=== PATIENT | female | born 1980 ===

== ENCOUNTER 2023-12-23 16:58 | Emergency (ER) | payer MEDICAID, SELFPAY ==
--- NOTE | ~2023-12-23 | XR_ITS ---
EXAMINATION: Left ankle and foot x-ray CLINICAL INFORMATION: Trauma COMPARISON: None. TECHNIQUE: 3 views of the left ankle and 3 views of the left foot FINDINGS: Left foot: There is a nondisplaced fracture through the base of the fifth metatarsal bone. Joint spaces are normal. There is soft tissue swelling adjacent to the fracture. Left ankle: Bone alignment is normal. No fracture or dislocation. Normal ankle mortise. Normal soft tissues. XR/XR ankle LT min 3V IMPRESSION: Nondisplaced fracture through the base of the fifth metatarsal bone.
--- NOTE | ~2023-12-23 | XR_ITS ---
EXAMINATION: Left ankle and foot x-ray CLINICAL INFORMATION: Trauma COMPARISON: None. TECHNIQUE: 3 views of the left ankle and 3 views of the left foot FINDINGS: Left foot: There is a nondisplaced fracture through the base of the fifth metatarsal bone. Joint spaces are normal. There is soft tissue swelling adjacent to the fracture. Left ankle: Bone alignment is normal. No fracture or dislocation. Normal ankle mortise. Normal soft tissues. XR/XR foot LT min 3V IMPRESSION: Nondisplaced fracture through the base of the fifth metatarsal bone.
[2023-12-23 17:08] VITALS: BP 118/72; PULSE 100; O2SAT 98
--- NOTE | 2023-12-23 17:23 | ED.LOWEXIN ---
HPI - Extremity Injury (Lower) General Chief Complaint: Extremity Injury, Lower Stated Complaint: FALL, L ANKLE PAIN Time Seen by Provider: 12/23/23 19:09 Source: patient Mode of arrival: EMS Limitations: no limitations History of Present Illness HPI Narrative: Patient is a 43-year-old female who presents emergency department via EMS for evaluation of traumatic left ankle/proximal foot pain. Reports a twisting injury and subsequent fall without head strike or loss of consciousness. Endorses pain to the lateral ankle and proximal mid foot along the 5th metatarsal. Denies numbness or tingling. Denies prior injury to this foot/ankle. Related Data Allergies Allergy/AdvReac Type Severity Reaction Status Date / Time No Known Allergies Allergy Verified 12/23/23 17:30 Review of Systems Review of Systems: Yes all other systems are reviewed and are negative [facility] Past Medical History Attestation statement: The following information was validated with the patient. Source: old records reviewed Social History Social History Advance Directives: No Advance Directives Information Provided: No Do you have a plan to hurt others: No Plan Physical Exam Vital Signs: Vital Signs: Last Vital Signs Temp 98.7 F 12/23/23 19:35 Pulse 75 12/23/23 19:35 Resp 20 12/23/23 19:35 BP 113/73 12/23/23 19:35 Pulse Ox 95 12/23/23 19:35 O2 Del Method Room Air 12/23/23 19:35 BMI result Body Mass Index 30.1 Appearance: Alert.?Oriented to person, place and time. No acute distress.?Normal affect.? Neck: Normal inspection.? Neck supple.?? CVS: Heart sounds normal. Normal heart rate and rhythm.? Pulses normal.?? Respiratory: No respiratory distress.? Lung sounds clear to auscultation bilaterally?? Skin: Skin warm and dry.? Normal skin color.? Extremities: No lower extremity edema.? No calf ttp?tenderness upon palpation to left proximal midfoot over 3rd-5th metatarsal. 2+ DP/PT pulse bilaterally Neuro: Moves all extremities spontaneously. Sensation intact bilaterally. Ambulates with antalgic gait Course Course Course Narrative: This is a rapid medical exam performed by Teja Reza NP: Additional HPI, ROS, PE not included below will be deferred to primary provider. Patient is a 43-year-old [place] speaking female presenting to the ED with complaint of left ankle pain. Also complains of pain to bottom of foot. States was running at home prior to arrival when she twisted her ankle and fell. Denies head strike or LOC. Denies neck or back pain. Plan: xrays Medical Decision Making Medical Decision Making MDM Narrative: Patient is a 43-year-old female who presents emergency department for evaluation of traumatic left lower extremity pain as per HPI. No obvious deformity on examination in the extremity is neurovascularly intact distally. XR was obtained to evaluate for fracture/dislocation versus sprain. XR consistent with a fracture of the proximal 5th metatarsal nondisplaced. She was placed in an orthopedic boot discussed rest, ice, elevation, acetaminophen/ibuprofen and outpatient follow-up with orthopedics. All questions were answered. Stable for discharge Differential Diagnosis Differential Diagnoses: The differential diagnosis associated with the presentation includes (See narrative above) Independent Interpretation I performed an independent interpretation of an: Plain X-Ray (Proximal 5th metatarsal fracture) Radiology Impression Discussion of test interpretation with radiology: I have reviewed the radiologist's reading. Radiologist Impression: FINDINGS: Left foot: There is a nondisplaced fracture through the base of the fifth metatarsal bone. Joint spaces are normal. There is soft tissue swelling adjacent to the fracture. Left ankle: Bone alignment is normal. No fracture or dislocation. Normal ankle mortise. Normal soft tissues. XR/XR ankle LT min 3V IMPRESSION: Nondisplaced fracture through the base of the fifth metatarsal bone. Independent Historian Clinical information obtained from an independent historian. History obtained from or confirmed by: EMS Prescription Management I considered prescription management with: Pain Medication Discharge Plan Discharge Clinical Impression: Metatarsal fracture Patient Disposition: Home, Self-Care Instructions: Foot Fracture in Adults (ED), R.I.C.E. Treatment (ED) Additional Instructions: You can take ibuprofen 200 mg, 3 tablets (600mg) every 6-8 hours as needed for pain, in addition to Tylenol 500 mg, 2 tablets (1,000mg) every 4-6 hours as needed for pain, but not to exceed 3 doses daily (3,000mg).? Wear the boot provided at all times until you are evaluated by orthopedics. Call their office first thing tomorrow morning to arrange for a follow-up visit. You may return back to emergency department any new or worsening symptoms or concerns. Referrals: Ary Saunders PA-C [Physician Elementary School Director] - Physician,Stephon J [Primary Care Provider] - Stand Alone Forms: Work/School Release Print Language: [place]
[2023-12-23 17:26] VITALS: BP 129/83; PULSE 91; RESP 18; TEMP 36.9; O2SAT 98; BMI 30.1
[2023-12-23 19:35] VITALS: BP 113/73; PULSE 75; RESP 20; TEMP 37.1; O2SAT 95
[2023-12-23] MEDS: Ibuprofen 600 MG TABLET PO (20:28)
[2023-12-23 20:32] VITALS: BP 113/73; PULSE 75; RESP 20; TEMP 37.1; O2SAT 95
== END 2023-12-23 20:32 | disposition home or self-care (01) ==
PROVIDERS: Emergency Provider Internal Medicine
DX: S92.352A Displaced fracture of fifth metatarsal bone, left foot, initial encounter for closed fracture (principal); M25.572 Pain in left ankle and joints of left foot; M79.672 Pain in left foot; X50.1XXA Overexertion from prolonged static or awkward postures, initial encounter; Y93.9 Activity, unspecified; Y92.9 Unspecified place or not applicable; Y99.8 Other external cause status
CPT/HCPCS: 73610; 73630; 99283

== ENCOUNTER 2023-12-29 06:29 | Outpatient (REF) | payer MEDICAID, SELFPAY ==
--- NOTE | ~2023-12-29 | XR_ITS ---
EXAMINATION: XR FOOT, LEFT CLINICAL INFORMATION: Pain left foot COMPARISON: X-rays of the left ankle November 2023 TECHNIQUE: AP, lateral, and oblique views of the left foot. FINDINGS: The bones and soft tissues are normal. No fracture. Alignment is anatomic. Joint spaces are maintained. XR/XR foot LT min 3V IMPRESSION: Normal left foot. Previously described fracture of the base of the fifth metatarsals not visible..
== END 2023-12-29 06:30 | disposition home or self-care (01) ==
LOC: HO.HOSX 06:29
PROVIDERS: Visit Provider Physician Assistant
DX: S92.353A Displaced fracture of fifth metatarsal bone, unspecified foot, initial encounter for closed fracture (principal); S93.402A Sprain of unspecified ligament of left ankle, initial encounter
CPT/HCPCS: 73630; 99212

== ENCOUNTER 2023-12-29 14:33 | Outpatient (AMB) | payer MEDICAID, SELFPAY ==
--- NOTE | 2023-12-29 15:01 | MHC.OFFVIS ---
Vital Signs 12/29/23 15:15 Height 5 ft Weight 154 lb BMI 30.1 Intake Visit Reasons: FC-Metatarsal fracture, left ankle Intake Note: Clarissa a 43 year old female who presents today for an ER follow up s/p LT 5th metatarsal fracture, DOI 12/23/23. Patient reports she fell and twisted her ankle. She was seen in [facility] and was placed in a boot until further evaluated. Currently her pain is located at the lateral aspect of foot. Finds relief with ibuprofen. Denies numbness or tingling. Allergies No Known Allergies Allergy (Verified 01/07/24 14:53) Medication List - Last Reconciled 01/11/24 by Jacey May PA-C acetaminophen (Acetaminophen Extra Strength) 1,000 mg (2 x 500 mg) PO Q6H PRN ibuprofen 600 mg PO Q8H PRN HPI HPI FC-Metatarsal fracture, left ankle: Details: 43-year-old female who presents to the office today with an certified surgical first assistant for an ER follow-up of left ankle injury after a fall and twisting her ankle, 12/23/23. She was seen at ER where she was placed in a boot and referred to our office. She currently states she has pain at the lateral aspect of her foot. She denies any numbness or tingling. She finds relief with ibuprofen. [facility] Surgical History (Updated 12/29/23 @ 15:09 by LUCIANA Hernandez) No pertinent past surgical history Social History (Updated 12/29/23 @ 15:09 by LUCIANA Hernandez) Patient Tobacco Use Status: Never used Tobacco Current occupational status: unemployed Review of Systems Const All systems reviewed & are unremarkable except as noted in HPI and below Physical Exam Vital Signs: BMI result Body Mass Index 30.1 Const General: cooperative, healthy appearing, comfortable, no acute distress, well developed and alert Orientation/consciousness: patient oriented x3 HEENT Head: Yes normal to inspection, Yes normocephalic and Yes atraumatic Eyes General: appearance normal, both eyes and all related structures Resp Effort & Inspection: normal respiratory effort and able to speak in complete sentences Cardio Rate: regular rate Peripheral pulses: Peripheral pulses 2+ throughout GI Palpation (GI): Soft to palpation Skin Lesions: no lesions Rashes: no rashes Neuro General: patient oriented x3 Extrem Other: Left foot: Skin intact.? There is some bruising of the lateral edge of the left foot.? There is tenderness at the base of the 5th metatarsal. Sensation intact.? EHL intact.? No pain along the mediolateral malleolus.? Neurovascularly intact. Office Procedures Fracture Care Fracture Billing Code: Fracture Billing Code Results Reviewed Results Reviewed: LT min 3V IMPRESSION: Nondisplaced fracture through the base of the fifth metatarsal bone. Assessment & Plan Assessment & Plan (1) Left ankle sprain: Code(s): S93.402A - Sprain of unspecified ligament of left ankle, initial encounter Category: Medical (2) Fracture of 5th metatarsal: Code(s): S92.353A - Displaced fracture of fifth metatarsal bone, unspecified foot, initial encounter for closed fracture Category: Medical Plan We discussed options which include PT, NSAIDs and bracing. The patient will proceed with PT and NSAIDs. she should use comfortable street shoes for ambulation and if symptoms persist she will see me back, otherwise, PRN. Orders: Orders XR foot LT min 3V 12/29/23 M79.672 - Pain in left foot PT Evaluation and Treatment 12/29/23 S93.402A - Sprain of unspecified ligament of left ankle, initial encounter, S92.353A - Displaced fracture of fifth metatarsal bone, unspecified foot, initial encounter for closed fracture Patient Instructions: Scribed for Jacey May PA-C, by Feng Mccarthy medical corps officer, on 12/29/2023 at 2:30 PM EST.? I, Jacey May PA-C, have personally reviewed and agree with the information entered by the scribe. Coding Level of Care Code New Pt Level 3 (57962) Diagnoses Left ankle sprain S93.402A Fracture of 5th metatarsal S92.353A CPT Codes Fracture Care - Fracture Billing Code: Fracture Billing Code ([id number])
[2023-12-29 15:15] VITALS: BMI 30.1
== END 2023-12-29 16:17 | disposition home or self-care (01) ==
PROVIDERS: Visit Provider Physician Assistant
DX: S93.402A Sprain of unspecified ligament of left ankle, initial encounter (principal); S92.352A Displaced fracture of fifth metatarsal bone, left foot, initial encounter for closed fracture
CPT/HCPCS: 99203

== ENCOUNTER 2024-01-02 08:30 | Outpatient (REF) | payer MEDICAID, SELFPAY | END 2024-01-02 08:31 | disposition home or self-care (01) | LOC: HO.HOSX 08:30 | DX: Z13.89 Encounter for screening for other disorder (principal) ==

== ENCOUNTER 2024-01-07 08:30 | Outpatient (REF) | payer MEDICAID, SELFPAY ==
--- NOTE | ~2024-01-07 | XR_ITS ---
EXAMINATION: XR FOOT, LEFT CLINICAL INFORMATION: Pain in foot attention fifth metatarsal COMPARISON: Foot radiographs 12/29/2023 and 12/23/2023 TECHNIQUE: 3 views of the foot FINDINGS: The a previously suspected fracture at the base of the fifth metatarsal is not definitively discerned. CT could be confirmatory if persistent clinical concern. Joint spaces are maintained. No joint effusion. Soft tissues are unremarkable. XR/XR foot LT min 3V IMPRESSION: 1. The a previously suspected fracture at the base of the fifth metatarsal is not definitively discerned. CT could be confirmatory if persistent clinical concern.
== END 2024-01-07 08:31 | disposition home or self-care (01) ==
LOC: HO.HOSX 08:30
DX: S92.355A Nondisplaced fracture of fifth metatarsal bone, left foot, initial encounter for closed fracture (principal)
CPT/HCPCS: 73630; 99212

== ENCOUNTER 2024-01-07 13:00 | Outpatient (AMB) | payer MEDICAID, SELFPAY ==
--- NOTE | 2024-01-07 14:51 | A.OFFVIS_ITS ---
Intake Visit Reasons: OV - LT 5th metatarsal fracture, DOI 12/23/23 Intake Note: Clarissa is a 43 year old female who presents today for a follow up s/p LT 5th metatarsal fracture, DOI 12/23/23. Patient reports she is doing a bit better. She finds when she is walking with out her boot she trends to have sharp on the lateral aspect of the foot. Patient expresses that her foot tends to swell when she is over doing it with walking and she thinks the heat might also make her foot swollen. No hx of PT. Allergies No Known Allergies Allergy (Verified 01/07/24 14:53) HPI HPI OV - LT 5th metatarsal fracture, DOI 12/23/23: Details: Patient is a 43-year-old female who presents for evaluation of left 5th metatarsal fracture, date of injury 12/23/2023. Patient states that she tripped and fell at home while trying to get out of her chair to reach her child. Patient was previously evaluated in the emergency department, where she was put into a walking boot. Today, the patient reports that her pain and swelling have improved significantly, and then she only experiences mild pain and tenderness to palpation over the 5th metatarsal base. Patient reports that she has been using the walking boot since evaluation in the emergency department. [facility] Surgical History (Updated 12/29/23 @ 15:09 by LUCIANA Hernandez) No pertinent past surgical history Social History (Updated 12/29/23 @ 15:09 by LUCIANA Hernandez) Patient Tobacco Use Status: Never used Tobacco Current occupational status: unemployed Review of Systems Const All systems reviewed & are unremarkable except as noted in HPI and below Physical Exam Extrem Other: Patient is alert, oriented, and in no acute distress. Neuro: motor and sensory intact and sensation is normal to the tips of all digits. Vascular: Cap refill brisk Pain: Patient reports mild tenderness to palpation to the base of the 5th left metatarsal ROM: Range of motion of the ankle and toes of the left foot full and intact Skin: No lacerations or abrasions. General: No ecchymosis, erythema, or evidence of infection. Psych: Appears grossly normal Affect normal Attitude cooperative Office Procedures Fracture Care Details: Nondisplaced 5th metatarsal fracture Fracture Billing Code: Fracture Billing Code Results Reviewed Results Reviewed: X-rays obtained in the office today and independently reviewed by me, Luther Hugo PA-C, demonstrate nondisplaced fracture of the left 5th metatarsal base, without involvement of the intermetatarsal joint. Assessment & Plan Assessment & Plan (1) Fracture of 5th metatarsal: Code(s): S92.353A - Displaced fracture of fifth metatarsal bone, unspecified foot, initial encounter for closed fracture Category: Medical Qualifiers: Encounter type: initial encounter Fracture type: closed Fracture al ignment: nondisplaced Laterality: left Qualified Code(s): S92.355A - Nondisplaced fracture of fifth metatarsal bone, left foot, initial encounter for closed fracture Plan 1. Proximal 5th metatarsal fracture, left No surgical intervention indicated in this patient at this time Patient is advised to continue wearing walking boot, but can slowly begin to turned to wearing normal footwear as tolerated Patient advised that in approximately 2-3 weeks, she should no longer be using the boot Patient advised to follow-up p.r.n. with any acute concerns, such as worsening pain or swelling. Orders: Orders XR foot LT min 3V Today M79.672 - Pain in left foot Coding Level of Care Code New Pt Level 3 (19779) Diagnoses Closed nondisplaced fracture of fifth metatarsal bone of left foot, initial encounter S92.355A Encounter type: initial encounter Fracture type: closed Fracture alignment: nondisplaced Laterality: left CPT Codes Fracture Care - Fracture Billing Code: Fracture Billing Code ([id number])
== END 2024-01-07 15:09 | disposition home or self-care (01) ==
DX: S92.355A Nondisplaced fracture of fifth metatarsal bone, left foot, initial encounter for closed fracture (principal)
CPT/HCPCS: 99213

== ENCOUNTER 2025-01-13 09:52 | Outpatient (REF) | payer MEDICAID, SELFPAY ==
--- NOTE | ~2025-01-13 | XR_ITS ---
EXAMINATION: XR CHEST CLINICAL INFORMATION: cough and SOB COMPARISON: None available. TECHNIQUE: 2 views of the chest were obtained. FINDINGS: The cardiac, hilar, and mediastinal contours are normal. The lungs are clear bilaterally. There is no pneumothorax or pleural effusion. There is no focal osseous or soft tissue abnormality. XR/XR chest 2V IMPRESSION: Normal chest. Electronically signed by: Juan Hutchison MD 01/13/2025 10:14 AM EDT
--- OUTSIDE RECORDS SUMMARY | 2025-01-13 10:15 | XMS_ITS | Clinical Summary ---
Author Organization [facility] Address [address] [place] [address] Care Team Providers Care Import Specialist Name Role Phone Mariya Ng ORDER DEPARTMENT SUPERVISOR Primary Care Provider [phone] Source Comments PLEASE NOTE, if this patient is a minor, it may be UNLAWFUL to discuss sensitive information that is contained in these records (such as FAMILY PLANNING, MENTAL HEALTH or SUBSTANCE ABUSE) with the minor patient's parent or other person without the patient's specific authorization.[facility] Allergies No known active allergies Medications diphenhydrAMINE HCL (BENADRYL) 25 mg tabletIndication s:Scabies infestation Take 1 Tablet by mouth every 8 (eight) hours as needed for itching 30 Tablet 09/08/19 24 Active ibuprofen 600 mg tablet TAKE ONE TABLET BY MOUTH EVERY 6 HOURS NEEDED FOR PAIN 30 Tablet 1 05/19/20 24 Active hydrocortisone (ANUSOL-HC) 25 mg suppositoryIndic ations:Residual hemorrhoidal skin tags Place 1 Suppository rectally 2 (two) times daily 60 Suppository 11/12/19 25 Active polyethylene glycol, PEG, 3350 (GLYCOLAX) 17 gram/dose powder Take 17 g by mouth once daily 510 g 5 11/12/19 25 Active omeprazole (PRILOSEC) [address] capsuleIndicatio ns:Gastroesophag eal reflux disease, unspecified whether esophagitis present Take 1 Capsule by mouth every morning before breakfast for 90 days 90 Capsule 11/12/19 25 025 Active amoxicillin (AMOXIL) 500 mg tablet Take 1 Tablet by mouth 2 (two) times daily. 20 Tablet 11/19/19 25 Active Active Problems No known active problems Encounters Date Type Department Care Team Description 12/16/2024 10:20 AM EDT Office Visit [address] [phone] Leti Winklerfer 11/30/2024 1:00 PM EDT Office Visit [address] [phone] Mihaela FallonDIANA 11/18/2024 Results Follow-Up [address] [address] Taylor Najera, [facility] 11/11/2024 4:00 PM EDT Office Visit [address] [address] Taylor Najera, [facility] 11/10/2024 Interim Notes [address] [address] [place] 11/04/2024 4:20 PM EDT Immunizations [address] [address] Carlyle Jones, Pearl De Los Santos 10/29/2024 3:40 PM EDT Office Visit [facility] [address] [place] [phone] Tawanda Franco MD Martinez, Celestia from Last 3 Months Immunizations Immunization Administration Dates Next Due Hep B,adult,adjuvanted (HEPLISAV) 01/30/2024,04/2024 IPV (IPOL) 11/04/2024 MMR (MMR II/Priorix) 09/08/2023,04/23/2023 Pfizer COVID-19 (Comirnaty), Mrna, Lnp-s, Pf, Marcello-sucrose, 30 Mcg/0.3 Ml, 12yr+ 09/08/2023 TDAP 08/06/2023 Td (adult),2 Lf tetanus toxo id (TDVAX), preservative free 09/08/2023 Family History Medical History Relation Name Comments Liver Cancer Maternal Grandmother No Known Problems Mother Relation Name Status Comments Father Maternal Grandmother Mother Alive Social History Tobacco Use Types Packs/Day Years Used Date Smoking Tobacco: Never Passive Smoke Exposure: Never Smokeless Tobacco: Never Tobacco Cessation:Counseling Given: Not Answered Alcohol Use Standard Drinks/Week Comments Never 0 (1 standard drink = 0.6 oz pur e alcohol) Social Connections Answer Date Recorded Connectedness 0 03/09/2024 Financial Resource Strain Answer Date R ecorded Financial Resource Strain 0 2023 Stress Answer Date Recorded Stress 0 07/17/2023 Physical Activity Answer Date Recorded Physical Activity 0 07/17/2023 Food Insecurity Answer Date Recorded Food 0 03/25/2024 Transportation Needs Answer Date Record ed Transportation 0 07/17/2023 Housing Stability Answer Date Recorded Housing 0 07/17/2023 Safety and Environment Answer Date Thom rded How often does anyone, inclu ding family and friends, physically hurt you? 1 01/30/2024 Utilities Answer Date Recorded Utilities 0 07/17/2023 Employment Answer Date Recorded Stress 0 01/30/2024 Comments No Sex and Gender Information Value Date Recorded Sex Assigned at Female 08/06/2023 12:38 PM PST Legal Sex Female 5:18 AM PST Gender Identity Female 08/06/2023 12:38 PM PST Sexual Orientation Straight 08/06/2023 12 :38 PM PST Last Filed Vital Signs Vital Sign Reading Time Taken Comments Blood Pressure 111/75 12/16/2024 1:39 PM EDT Pulse 65 12/16/2024 1:39 PM EDT Temperature 36.9 C (98.4 F) 11/11/2024 4:34 PM EDT Respiratory Rate 16 11/11/2024 4:34 PM EDT Oxygen Saturation 98% 11/11/2024 4:34 PM EDT Inhaled Oxygen Concentration - - Weight 77.1 kg (170 lb) 11/11/2024 4:34 PM EDT Height 160 cm (5' 3 ) 11/11/2024 4:34 PM EDT Body Mass Index 30.11 11/11/2024 4:34 PM EDT Plan of Treatment Upcoming Encounters Date Type Department Care Team (Late st Contact Info) Description 01/26/2025 4:40 PM EDT Office Visit [address] [phone] Mariya Ng FNP [address] [place] [address] Health Maintenance Due Date Last Done Comments Anxiety Screening 1980 HPV Screening 1980 [id number] (2023- season) 2024 024 Alcohol and Drug Screen 06/30/2024 01/30/2024 Depression Annual Screen 06/30/2024 01/30/2024 Annual Wellness (Adult): Indicated (All Coverage) 01/29/2025 01/30/2024 Relationship Safety Screening/Counseling 01/29/2025 01/30/2024 Imm-Influenza (#1) 2025 Cervical Cancer Screening 03/22/2025 Pap + HPV 03/22/2025 03/22/2024 Dental BW 05/06/2025 05/04/2024 Dental Examination 05/06/2025 05/04/2024 Hypertension Screening (#1) 12/16/2025 Tobacco Screening 12/16/2025 12/16/2024 Dental Perio Charting 12/18/2025 12/16/2024 Dental Prophy 12/18/2025 12/16/2024, 06/01/2024 Breast Cancer Screening (Mammogram) 02/09/2026 02/10/2024 Pap Smear 03/22/2027 03/22/2024 Diabetes Screening 11/12/2027 11/11/2024, 0 11/11/2024, 01/30/2024, Additional history exists Lipid Screening 11/12/2027 11/11/2024, 01/30/2024 Dental FMX/Pano 05/06/2029 05/04/2024 Imm-DTaP/Tdap/Td (3 - Td or Tdap) 09/07/2033 024, 08/06/2023 HIV Screening Completed 08/06/2023 Hepatitis C Screening Completed 08/06/2023 Imm-Hepatitis B Completed 01/30/2024, 09/08/2023 Cervical Ablation/Cold-Knife Conization Discontinued Cervical Cryotherapy Discontinued Colposcopy Discontinued Endometrial Biopsy Discontinued Excision/Leep Discontinued HPV Genotyping Discontinued Vaginal Pap Discontinued Vulvoscopy Discontinued Procedures Procedure Name Priority Date/Time Associated Diagnosis Comments HEALTH HISTORY SCANNED DOCUMENT 12/24/2024 3:00 AM EDT DENTAL CASE MANAGEMENT - MOTIVATIONAL INTV Routine 12/16/2024 10:20 AM EDT Encounter for dental examination PROPHYLAXIS - ADULT Routine 12/16/2024 1 0:20 AM EDT Encounter for dental examination NUTRITIONAL COUNSELING CONTROL OF DENTAL DISEASE Routine 12/16/2024 10:20 AM EDT Encounter for dental examination ORAL HYGIENE INSTRUCTIONS Routine 12/16/2024 10:20 AM EDT Encounter for dental examination ORAL CANCER SCREENING Routine 12/16/2024 10:20 AM EDT Encounter for dental examination CASE PRESENTATION SUBS DTL & EXTENSIVE TX PLN Routine 12/16/2024 10:20 AM EDT Encounter for dental examination 14,5,6,7,8,9,10,11,12 MAXILLARY PARTIAL DENTURE - RESIN BASE Routine 11/30/2024 1:00 PM EDT Encounter for dental examination RFLX - REFLEXIVE URINE CULTURE Routine 11/11/2024 5:00 PM EDT LIPIDS W RFLX TO DIRECT LDL Routine 11/11/2024 5:00 PM EDT Fatigue, unspecified type TSH W/RFLX FREE T4 Routine 11/11/2024 5: 00 PM EDT Fatigue, unspecified type HGA1C W/EAG Routine 11/11/2024 5:00 PM EDT Fatigue, unspecified type URINALYSIS, COMPLETE W/REFLEX TO CULTURE Routine 11/11/2024 5:00 PM EDT Fatigue, unspecified type COMPREHENSIVE METABOLIC PANEL Routine 11/11/2024 5:00 PM EDT Fatigue, unspecified type BLOOD COUNT COMPLETE AUTO&AUTO DIFRNTL WBC Routine 11/11/2024 5:00 PM EDT Fatigue, unspecified type H PYLORI UREA BREATH TEST Routine 11/11/2024 5:00 PM EDT Residual hemorrhoidal skin tags Fatigue, unspecified type INTRAORAL - COMP SERIES OF RADIOGRAPHIC IMAGES Routine 05/04/2024 2:20 PM EST Encounter for dental examination COMP ORAL EVALUATION - NEW/ESTABLISHED PATIENT Routine 05/04/2024 2:20 PM EST Encounter for dental examination THINPREP IMAGING PAP, HPV MRNA E6/E7 RFLEX HPV 16,18/45 CT/NG Routine 03/22/2024 10:06 AM EDT Cervical cancer screening REFERRAL FOR MAMMOGRAM Routine 02/10/2024 3:00 AM EDT Screening mammogram for breast cancer HIV 1/2 AG & AB W/RFLX (4TH GEN) Routine 08/06/2023 3:13 PM EST Refugee health examination Screening-pulmonary TB HEPATITIS C AB W/RFLX HCV RNA, QT, RT PCR Routine 08/06/2023 3:13 PM EST Refugee health examination Screening-pulmonary TB from Last 3 Months or Most Recently Relevant to Health Maintenance Results * HEALTH HISTORY SCANNED DOCUMENT (12/24/2024 3:00 AM EDT) 12/24/2024 3:00 AM EDT Tawanda Franco MD SCAN OTHER ORDERS Final Resu lt * HGA1C W/EAG (11/11/2024 5:00 PM EDT) HEMOGLOBIN A1C 5.3 <5.7 % [facility] Comment: For the purpose of screening for the presence of diabetes: <5.7% Consistent with the absence of diabetes 5.7-6.4% Consistent with increased risk for diabetes (prediabetes) > or =6.5% Consistent with diabetes This assay result is consistent with a decreased risk of diabetes. Currently, no consensus exists regarding use of hemoglobin A1c for diagnosis of diabetes in children. According to [place] Diabetes Association (ADA) guidelines, hemoglobin A1c <7.0% represents optimal control in non- diabetic patients. Different metrics may apply to specific patient populations. Standards of Medical Care in Diabetes(ADA). EAG (MG/DL) 105 mg/dL [employer] EAG (MMOL/L) 5.8 mmol/L [facility] Blood Blood / Unknown 11/11/2024 5 :00 PM EDT 11/11/2024 5:01 PM EDT Taylor Najera [facility] LAB - BLOOD DRAW Jerson savita Result - Final Performing Organization Address [facility] Co de Phone Number [facility] [employer] [address] [address], [employer] [address] [address] * TSH W/RFLX FREE T4 (11/11/2024 5:00 PM EDT) TSH W/REFLEX TO FT4 3.32 0.40 - 4.50 mIU/L [employer] [facility] Comment: Reference Range > or = 20 Years 0.40-4.50 Ranges First trimester 0.26-2.66 Second trimester 0.55-2.73 Third trimester 0.43-2.91 Blood Blood / Unknown 11/11/2024 5 :00 PM EDT 11/11/2024 5:01 PM EDT Taylor Najera [facility] LAB - BLOOD DRAW Jerson savita Result - Final Performing Organization Address [facility] de Phone Number [facility] [employer] [address] [address], [employer] [address] [address] * (ABNORMAL) LIPIDS W RFLX TO DIRECT LDL (11/11/2024 5:00 PM EDT) CHOLESTEROL, TOTAL 198 <200 mg/dL [facility] [employer] [facility] HDL CHOLESTEROL 55 > OR = 50 mg/dL [facility] [employer] [facility] TRIGLYCERIDES 173(H) <150 mg/dL [facility] [employer] [facility] LDL-CHOLESTEROL 114(H) 99 mg/dL (calc) [facility] [employer] [facility] Comment: Reference range: <100 Desirable range <100 mg/dL for primary prevention; <70 mg/dL for patients with CHD or diabetic patients with > or = 2 CHD risk factors. LDL-C is now calculated using the Marissa calculation, which is a validated novel method providing better accuracy than the Friedewald equation in the estimation of LDL-C. David SS et al. CARINA. 2013;310(19): 3862-7650 (http://education.[employer]/faq/QDY839) CHOL/HDLC RATIO 3.6 <5.0 (calc) [facility] NON-HDL CHOLESTEROL 143(H) <130 mg/dL (calc) [facility] Comment: For patients with diabetes plus 1 major ASCVD risk factor, treating to a non-HDL-C goal of <100 mg/dL (LDL-C of <70 mg/dL) is considered a therapeutic option. Blood Blood / Unknown 11/11/2024 5 :00 PM EDT 11/11/2024 5:01 PM EDT Taylor SMITH LAB - BLOOD DRAW Fin al Result [employer] [address] [address], [facility] [address] [place] [address] * (ABNORMAL) URINALYSIS, COMPLETE W/REFLEX TO CULTURE (11/11/2024 5:00 PM EDT) COLOR YELLOW YELLOW [facility] APPEARANCE CLOUDY(A) CLEAR [facility] SPECIFIC GRAVITY 1.018 1.001 - 1.035 [facility] URINE PH 6.5 5.0 - 8.0 [facility] GLUCOSE NEGATIVE NEGATIVE [facility] BILIRUBIN NEGATIVE NEGATIVE [facility] KETONES NEGATIVE NEGATIVE [facility] OCCULT BLOOD NEGATIVE NEGATIVE [facility] URINE PROTEIN NEGATIVE NEGATIVE [facility] NITRITE NEGATIVE NEGATIVE [facility] LEUKOCYTE ESTERASE NEGATIVE NEGATIVE [facility] URINE LEUKOCYTES NONE SEEN < OR = 5 [facility] RBC 0-2 0 - 2 /HPF [facility] SQUAMOUS EPITHELIAL CELLS NONE SEEN < OR = 5 [facility] BACTERIA NONE SEEN NONE SEEN [facility] CALCIUM OXALATE CRYSTALS MANY(A) NONE OR FEW [facility] HYALINE CAST NONE SEEN NONE SEEN [facility] SEE NOTE See Below [facility] Comment: This urine was analyzed for the presence of WBC, RBC, bacteria, casts, and other formed elements. Only those elements seen were reported. Urine Urine specimen / Unknown 11/11/2024 5:00 PM EDT 11/11/2024 5:01 PM EDT Taylor SMITH LAB URINE AMBULATORY Edited Result - Final Performing Organization Address [facility] [employer] de Phone Number [employer] [address] [address], [employer] [address] [address] * RFLX - REFLEXIVE URINE CULTURE (11/11/2024 5:00 PM EDT) Pathologist [facility] REFLEXIVE URINE CULTURE See Below [employer] [facility] Comment:NO CULTURE INDICATED 11/11/2024 5:00 PM EDT 11/11/2024 5:01 PM EDT Taylor DONOHUEP LAB - MICROBIOLOGY A MBULATORY Edited Result - Final Performing Organization Address [facility] de Phone Number [facility] [employer] [address] [address], [employer] [address] [address] * BLOOD COUNT COMPLETE AUTO&AUTO DIFRNTL WBC (11/11/2024 5:00 PM EDT) WHITE BLOOD CELL COUNT 8.3 3.8 - 10.8 Thousand/ uL [facility] [employer] [facility] RED BLOOD CELL COUNT 4.43 3.80 - 5.10 Million/u L [facility] [employer] [facility] HEMOGLOBIN 13.2 11.7 - 15.5 g/dL [employer] [facility] HEMATOCRIT 40.9 35.0 - 45.0 % [employer] [facility] MCV 92.3 80.0 - 100.0 fL [employer] [facility] MCH 29.8 27.0 - 33.0 pg [facility] [employer] [facility] MCHC 32.3 32.0 - 36.0 g/dL [facility] [employer] [facility] Comment: For adults, a slight decrease in the calculated MCHC value (in the range of 30 to 32 g/dL) is most likely not clinically significant; however, it should be interpreted with caution in correlation with other red cell parameters and the patient's clinical condition. RDW 12.5 11.0 - 15.0 % [facility] PLATELET COUNT 329 140 - 400 Thousand/ uL [facility] MPV 11.2 7.5 - 12.5 fL [facility] ABSOLUTE NEUTROPHILS 4,399 1,500 - 7,800 cells/uL [facility] ABSOLUTE LYMPHOCYTES 3,146 850 - 3,900 cells/uL [facility] ABSOLUTE MONOCYTES 506 200 - 950 cells/uL [facility] ABSOLUTE EOSINOPHILS 199 15 - 500 cells/uL [facility] ABSOLUTE BASOPHILS 50 0 - 200 cells/uL [facility] NEUTROPHILS PCT 53 % [facility] [employer] LYMPHOCYTES 37.9 % [facility] MONOCYTES 6.1 % [facility] EOSINOPHILS 2.4 % [facility] BASOPHILS 0.6 % [employer] [facility] Blood Blood / Unknown 11/11/2024 5 :00 PM EDT 11/11/2024 5:01 PM EDT Taylor SMITH LAB - BLOOD DRAW Jerson savita Result - Final [employer] [address] [place] [address], [facility] [address] [place] [phone] * (ABNORMAL) H PYLORI UREA BREATH TEST (11/11/2024 5:00 PM EDT) Pathologist [facility] RESULT DETECTED (A) NOT DETECTED [facility] Comment: Antimicrobials, proton pump inhibitors, and bismuth preparations are known to suppress H. pylori, and ingestion of these prior to H. pylori diagnostic testing may lead to false negative results. If clinically indicated, the test may be repeated on a new specimen obtained two weeks after discontinuing treatment. However, a positive result is still clinically valid. BREATH (Breath) 11/11/2024 5 :00 PM EDT 11/11/2024 5:01 PM EDT Taylor SMITH LAB - MICROBIOLOGY A MBULATORY Final Result [facility] [employer] [facility] [address] [address], [employer] [facility] [address] [place] [address] * COMPREHENSIVE METABOLIC PANEL (11/11/2024 5:00 PM EDT) GLUCOSE 91 65 - 99 mg/dL [facility] [employer] [facility] Comment: Fasting reference interval UREA NITROGEN (BUN) 8 7 - 25 mg/dL [facility] [employer] [facility] CREATININE (blood) 0.55 0.50 - 0.99 mg/dL [facility] [employer] [facility] EGFR 116 > OR = 60 mL/min/1. 73m2 [facility] [employer] [facility] BUN/CREATININE RATIO SEE NOTE: [employer] [facility] Comment: Not Reported: BUN and Creatinine are within reference range. SODIUM 138 135 - 146 mmol/L [facility] [employer] [facility] POTASSIUM 4.0 3.5 - 5.3 mmol/L [facility] [employer] [facility] CHLORIDE 103 98 - 110 mmol/L [facility] [employer] [facility] CARBON DIOXIDE 27 20 - 32 mmol/L [facility] [employer] [facility] CALCIUM 9.5 8.6 - 10.2 mg/dL [facility] [employer] [facility] PROTEIN, TOTAL 7.5 6.1 - 8.1 g/dL [facility] [employer] [facility] ALBUMIN 4.4 3.6 - 5.1 g/dL [facility] [employer] [facility] GLOBULIN 3.1 1.9 - 3.7 g/dL (calc) [facility] [employer] [facility] ALBUMIN/GLOBULI N RATIO 1.4 1.0 - 2.5 (calc) [facility] [employer] [facility] BILIRUBIN, TOTAL 0.2 0.2 - 1.2 mg/dL [facility] [employer] [facility] ALKALINE PHOSPHATASE 89 31 - 125 U/L [facility] [employer] [facility] AST 18 10 - 30 U/L [facility] [employer] [facility] ALT 22 6 - 29 U/L [facility] [employer] [facility] Blood Blood / Unknown 11/11/2024 5 :00 PM EDT 11/11/2024 5:01 PM EDT Taylor SMITH LAB - BLOOD DRAW Jerson savita Result - Final [facility] [employer] [facility] [address] [address], [employer] [address] [address] * THINPREP IMAGING PAP, HPV MRNA E6/E7 RFLEX HPV 16,18/45 CT/NG (03/22/2024 10:06 AM EDT) CHLAMYDIA TRACHOMATIS RNA, TMA NOT DETECTED NOT DETECTED [facility] [employer] NEISSERIA GONORRHOEAE RNA, TMA NOT DETECTED NOT DETECTED [facility] [employer] [facility] COMMENT [facility] CLINICAL INFORMATION See Note [facility] Comment:None given LMP See Note [facility] Comment:NONE GIVEN PREV. PAP See Note [facility] Comment:NONE GIVEN PREV. BX See Note [facility] Comment:NONE GIVEN SOURCE See Note [facility] Comment:Cervix STATEMENT OF ADEQUACY See Note [facility] Comment: Satisfactory for evaluation. Endocervical/transformation zone component present. INTERPRETATION/RESU LT See Note [facility] Comment: Cytology Results: Negative for intraepithelial lesion or malignancy. COMMENT See Note [facility] Comment: This Pap test has been evaluated with computer assisted technology. HEALTHCARE TRANSLATOR See Note [facility] [employer] [facility] Comment: EXJ, CT(ASCP) CT Screening Location: [place] [address] COMMENT [employer] [facility] HPV MRNA E6/E7 Not Detected Not Detected [facility] Comment: Methodology: Tool Shaper Setup Operator-Mediated Amplification This assay detects E6/E7 viral messenger RNA (mRNA) from 14 high-risk HPV types (16,18,31,33,35,39,45,51,52,56,58,59,66,68). Cervical sources are required for HPV testing. If a vaginal source from a patient who has had a total hysterectomy with removal of cervix was submitted, please contact the testing laboratory for alternative testing options. For additional information, please refer to http://education.[employer]/faq/BNV374i1 (This link if provided for information/ educational purposes only.) Swab Cervix uteri structure / Unknown 03/22/2024 10:06 AM EDT 03/23/2024 6:09 AM EDT Narrative [employer] [facility] - 03/24/2024 6:28 PM EDT EXPLANATORY NOTE: The Pap is a screening test for cervical cancer. It is not a diagnostic test and is subject to false negative and false positive results. It is most reliable when a satisfactory sample, regularly obtained, is submitted with relevant clinical findings and history, and when the Pap result is evaluated along with historic and current clinical information. The analytical performance characteristics of this assay, when used to test SurePath(TM) specimens have been determined by [employer]. The modifications have not been cleared or approved by the FDA. This assay has been validated pursuant to the CLIA regulations and is used for clinical purposes. For additional information, please refer to https://[employer]/faq/WFK721 (This link is being provided for information/ educational purposes only.) Vannesa Ortega DO LAB - PATHOLOGY AND CYTOLOGY A MBULATORY Final Result [facility] [employer] [address] [address], [facility] [employer] [address] [address] * REFERRAL FOR MAMMOGRAM (02/10/2024 3:00 AM EDT) 02/10/2024 3:00 AM EDT Mariya Ng ORDER DEPARTMENT SUPERVISOR IMG RFL MAMMO Final Result * HEP C AB W/RLFX HCV RNA (for all adults >/= 18 yrs, all women, and all unaccompanied minors) (08/06/2023 3:13 PM EST) HEPATITIS C ANTIBODY NON-REACT TOSHIA NON-REACT TOSHIA [employer] [facility] Comment: HCV antibody was non-reactive. There is no laboratory evidence of HCV infection. In most cases, no further action is required. However, if recent HCV exposure is suspected, a test for HCV RNA (test code 37168) is suggested. For additional information please refer to http://[employer]/faq/UQN81k0 (This link is being provided for informational/ educational purposes only.) Blood Blood / Unknown 08/06/2023 3 :13 PM EST 08/06/2023 3:13 PM EST Narrative [facility] [employer] [facility] - 08/10/2023 7:46 PM EST COLLECTION KIT GIVEN TO PATIENT. PATIENT ADVISED TO RETURN. Gretchen Llamas PA-C LAB - BLOOD DRAW Edited Resu lt - Final Performing Organization Address City/[facility]/ZIP Co de Phone Number [employer] [address] [address], [facility] [employer] [address] [address] * HIV 1/2 AG & AB W/RFLX (Required for 13 yrs to 64 yrs) (08/06/2023 3:13 PM EST) HIV AG/AB, 4TH GEN NON-REAC TIVE NON-REAC TIVE [employer] [facility] Comment: HIV-1 antigen and HIV-1/HIV-2 antibodies were not detected. There is no laboratory evidence of HIV infection. PLEASE NOTE: This information has been disclosed to you from records whose confidentiality may be protected by state law. If your state requires such protection, then the state law prohibits you from making any further disclosure of the information without the specific written consent of the person to whom it pertains, or as otherwise permitted by law. A general authorization for the release of medical or other information is NOT sufficient for this purpose. For additional information please refer to http://education.[employer]/faq/UIE334 (This link is being provided for informational/ educational purposes only.) The performance of this assay has not been clinically validated in patients less than 2 years old. Blood Blood / Unknown 08/06/2023 3 :13 PM EST 08/06/2023 3:13 PM EST Narrative [employer] [facility] - 08/10/2023 7:46 PM EST COLLECTION KIT GIVEN TO PATIENT. PATIENT ADVISED TO RETURN. us Gretchen Llamas PA-C LAB - BLOOD DRAW Final Resul t [employer] [address] [address], [place] [facility] [address] [place] [address] from Last 3 Months or Most Recently Relevant to Health Maintenance Insurance [place] MEDICA[place] DENT[place] [address] [facility] Medicaid Address: [facility] [id number] [place] [address] Care Teams Import Specialist Relationship Specialty Start Date End Date Mariya Ng FNP [address] [place] [id number] PCP - General Internal Medicine 11/07/23
== END 2025-01-13 09:53 | disposition home or self-care (01) ==
LOC: HO.HHCX 09:52
PROVIDERS: Visit Provider Family Medicine
DX: J40 Bronchitis, not specified as acute or chronic (principal)
CPT/HCPCS: 71046

== ENCOUNTER → 2025-01-13 09:52 | Outpatient (BNV) | payer MEDICAID, SELFPAY | PROVIDERS: Visit Provider Radiology Diagnostic Radiology | DX: R05.9 Cough, unspecified (principal); R06.02 Shortness of breath | CPT/HCPCS: 71046 ==